=== PATIENT | male | born 1950 | race Caucasian/White ===

== ENCOUNTER → 2021-06-30 | Outpatient (REF) | payer MEDICARE, BC, OTHER ==
[2021-06-30 18:18] LABS: CREATININE FOR GFR 1.44 MG/DL (0.70-1.30); GLOMERULAR FILTRATION RATE 51.3 (>42)
== END ==
LOC: M LAB REF 17:24 → M PLALAB 17:24
PROVIDERS: ATTEND Surgery Vascular Surgery
DX: I71.4 Abdominal aortic aneurysm, without rupture (principal); Z48.812 Encounter for surgical aftercare following surgery on the circulatory system

== ENCOUNTER → 2021-07-07 | Outpatient (CLI) | payer MEDICARE, BC, OTHER ==
[~2021-07-07] MED LIST: ISOVUE-370 76% 100ML VIAL As Ordered ONE
== END ==
LOC: M RAD 13:55
PROVIDERS: ATTEND Surgery Vascular Surgery
DX: I71.4 Abdominal aortic aneurysm, without rupture (principal)
CPT/HCPCS: 75635; Q9967

== ENCOUNTER → 2021-08-26 | Outpatient (CLI) | payer MEDICARE, BC, OTHER ==
[2021-08-26 12:45] LABS: BASO # 0.1 10^3/uL (0.0-0.2); BASO % 1.3 % (0.0-1.0); EOS # 0.4 10^3/uL (0.0-0.5); EOS % 5.5 % (0.0-3.0); HEMATOCRIT 43.7 % (42.0-52.0); HEMOGLOBIN 14.8 g/dl (13.5-17.5); LYMPH # 2.2 10^3/uL (1.5-5.0); LYMPH % 30.9 % (24.0-44.0); MEAN CORPUSCULAR HEMOGLOBIN 34.8 pg (27.0-33.0); MEAN CORPUSCULAR HGB CONC 33.9 g/dl (32.0-36.5); MEAN CORPUSCULAR VOLUME 102.8 fl (80.0-96.0); MONO # 0.5 10^3/uL (0.0-0.8); MONO % 6.8 % (2.0-8.0); NEUTROPHILS # 3.9 10^3/uL (1.5-8.5); NEUTROPHILS % 54.9 % (36.0-66.0); PLATELET COUNT, AUTOMATED 169 10^3/uL (150-450); RED BLOOD COUNT 4.25 10^6/uL (4.30-6.10); WHITE BLOOD COUNT 7.1 10^3/uL (4.0-10.0)
[2021-08-26 12:58] LABS: INR 1.17; PROTHROMBIN TIME 15.3 SECONDS (12.7-14.5)
[2021-08-26 12:59] LABS: PARTIAL THROMBOPLASTIN TIME 37.3 SECONDS (25.9-37.0)
[2021-08-26 14:54] LABS: CALCIUM LEVEL 9.4 MG/DL (8.8-10.2); CREATININE FOR GFR 1.39 MG/DL (0.70-1.30); GLOMERULAR FILTRATION RATE 53.5 (>42); POTASSIUM SERUM 4.7 MEQ/L (3.5-5.1)
== END ==
LOC: M WUC 09:50
PROVIDERS: ATTEND Surgery Vascular Surgery
DX: Z01.812 Encounter for preprocedural laboratory examination (principal); D69.8 Other specified hemorrhagic conditions; I70.212 Atherosclerosis of native arteries of extremities with intermittent claudication, left leg

== ENCOUNTER → 2021-08-27 | Outpatient (CLI) | payer MEDICARE, BC, OTHER | LOC: M LABSMTC 09:38 | PROVIDERS: ATTEND Surgery Vascular Surgery | DX: Z11.52 Encounter for screening for COVID-19 (principal) ==

== ENCOUNTER → 2021-10-17 | Outpatient (CLI) | payer MEDICARE, BC, OTHER | LOC: M RAD 12:56 | PROVIDERS: ATTEND Surgery Vascular Surgery | DX: R06.02 Shortness of breath (principal) ==

== ENCOUNTER → 2021-11-17 | Outpatient (CLI) | payer MEDICARE, BC, OTHER ==
--- NOTE | 2021-11-17 08:52 | REP ---
INDICATION: SMOKER COMPARISON: None. TECHNIQUE: Axial noncontrast images from the thoracic inlet to the upper abdomen using low-dose lung screening technique (LDCT). FINDINGS: Chronic emphysematous and subtle scattered interstitial changes are appreciated bilaterally along with small noncalcified densities measuring up to roughly 3 mm. Tracheobronchial tree is patent. Limited evaluation of the mediastinum demonstrates significant atherosclerotic changes to the thoracic aorta and coronary arteries with suggestions for ascending aortic aneurysm. Cardiomegaly is noted with evidence for prior aortic valve repair. There is a 1.5 cm subpleural part solid nodule along the posterior aspect of the apical left lower lobe (image 44). No further similar nodules or mass lesions are identified. IMPRESSION: Lung-RADS category 4-A. Three month low-dose CT follow-up examination and/or PET-CT should be considered for further investigation. <Electronically signed by Sher Arguello > 11/17/21 0888
== END ==
LOC: M RAD 07:25
PROVIDERS: ATTEND Family Medicine
DX: Z87.891 Personal history of nicotine dependence (principal)

== ENCOUNTER → 2022-02-16 | Outpatient (CLI) | payer MEDICARE, BC, OTHER | LOC: M RAD 07:40 | PROVIDERS: ATTEND Family Medicine | DX: Z12.2 Encounter for screening for malignant neoplasm of respiratory organs (principal); Z72.0 Tobacco use ==

== ENCOUNTER 2022-10-06 11:09 | Inpatient (IN) | payer MEDICARE, BC, OTHER ==
[~2022-10-06] VITALS: Ht 165.1 cm; Wt 110.3 kg
[2022-10-06] MEDS ORDERED: FENO135C6 PO (11:28)
[2022-10-06] MEDS ORDERED: METF500T13 PO (11:28)
[2022-10-06] MEDS ORDERED: PARO20TA3 PO (11:28)
[2022-10-06] MEDS ORDERED: FURO20TA2 PO (11:28)
[2022-10-06] MEDS ORDERED: METO1TAB7 PO (11:28)
[2022-10-06] MEDS ORDERED: ELIQ5TAB PO (11:28)
[2022-10-06] MEDS ORDERED: RAMI1CAP24 PO (11:28)
[2022-10-06] MEDS ORDERED: ALLO300T2 PO (11:28)
[2022-10-06] MEDS ORDERED: NITROGLYCERIN 0.4 MG SUBL TABLET As Ordered ONE (11:35)
[2022-10-06] MEDS ORDERED: LORazepam 2 MG/ML VIAL IV STA ×3 (11:39→11:43)
[2022-10-06] MEDS ORDERED: NITROGLYCERIN/D5W 100MCG/ML 25 MG in IV 1 EA IV SCH ×3 (11:40→16:05)
[2022-10-06] MEDS ORDERED: NITROGLYCERIN IN D5W 25MG/250ML (100MCG/ML) As Ordered ONE (11:40)
[2022-10-06] MEDS ORDERED: LORazepam 2 MG/ML VIAL As Ordered ONE (11:41)
[2022-10-06] MEDS ORDERED: NITROGLYCERIN 0.4 MG SUBL TABLET SL STA (11:42)
[2022-10-06 11:45] LABS: ABG BASE EXCESS -4.7 (-2.0-2.0); ABG HCO3 21.7 MEQ/L (22.0-26.0); ABG O2 SATURATION 87.5 % (95.0-99.0); ABG PARTIAL PRESSURE CO2 44.4 mmHg (35.0-45.0); ABG PARTIAL PRESSURE O2 56.5 mmHg (75.0-100.0); ABG STANDARD HCO3 20.4 MEQ/L (22.0-26.0); ABG pH (ARTERIAL) 7.306 UNITS (7.350-7.450)
[2022-10-06] MEDS ORDERED: ASPIRIN 81 MG CHEW TABLET PO ONE (11:45)
[2022-10-06 11:49] LABS: BASO # 0.1 10^3/uL (0.0-0.2); BASO % 1.1 % (0.0-1.0); EOS # 0.3 10^3/uL (0.0-0.5); EOS % 2.1 % (0.0-3.0); HEMATOCRIT 46.3 % (42.0-52.0); HEMOGLOBIN 15.4 g/dl (13.5-17.5); LYMPH # 3.1 10^3/uL (1.5-5.0); LYMPH % 23.3 % (24.0-44.0); MEAN CORPUSCULAR HEMOGLOBIN 35.2 pg (27.0-33.0); MEAN CORPUSCULAR HGB CONC 33.3 g/dl (32.0-36.5); MEAN CORPUSCULAR VOLUME 105.7 fl (80.0-96.0); MONO # 0.9 10^3/uL (0.0-0.8); MONO % 7.1 % (2.0-8.0); NEUTROPHILS # 8.7 10^3/uL (1.5-8.5); PLATELET COUNT, AUTOMATED 126 10^3/uL (150-450); RED BLOOD COUNT 4.38 10^6/uL (4.30-6.10); WHITE BLOOD COUNT 13.2 10^3/uL (4.0-10.0)
[2022-10-06 11:50] LABS: VENOUS BASE EXCESS -5.8 (-2.0-2.0); VENOUS HCO3 22.3 MEQ/L (23.0-27.0); VENOUS O2 SATURATION 68.3 % (60.0-80.0); VENOUS PARTIAL PRESSURE CO2 53.7 mmHg (38.0-50.0); VENOUS PARTIAL PRESSURE O2 39.7 mmHg (30.0-50.0); VENOUS PH 7.237 UNITS (7.330-7.430); VENOUS STANDARD HCO3 19.1 MEQ/L
[2022-10-06] MEDS ORDERED: FUROSEMIDE 100MG/10ML VIAL (J1940) IV ONE (11:50)
[2022-10-06] MEDS ORDERED: DIGOXIN INJ 0.5 MG/2 ML AMP IV ONE (11:55)
[2022-10-06] MEDS ORDERED: CEFEPIME HCL 2 GM in D5W MINI-BAG PLUS 50 ML IV ONE (12:15)
[2022-10-06] MEDS ORDERED: AZITHROMYCIN INJ 500 MG, VIAL MATE ADAPTER 1 EACH in D5W 250 ML IV ONE (12:15)
[2022-10-06] MEDS ORDERED: LIDOCAINE 2% 5ML JELLY UROJET TOP ONE (12:15)
[2022-10-06 12:30] LABS: RSV AMPLIFICATION NEGATIVE (NEGATIVE)
[2022-10-06 13:06] LABS: ALBUMIN 4.4 G/DL (3.2-5.2); BILIRUBIN,DIRECT 0.3 MG/DL (<0.4); BILIRUBIN,TOTAL 0.8 MG/DL (0.3-1.2); CK-MB VALUE MASS 2.3 NG/ML (<3.6); CREATININE FOR GFR 4.73 MG/DL (0.70-1.30); MAGNESIUM LEVEL 1.9 MG/DL (1.8-2.4); MB/CK RELATIVE INDEX 2.67 (< OR =4); POTASSIUM SERUM 4.8 MMOL/L (3.5-5.1); THYROID STIMULATING HORMONE 3.767 uIU/ML (0.55-4.78); THYROXINE (T4) 5.2 UG/DL (4.5-10.9); TOTAL PROTEIN 8.2 G/DL (5.7-8.2)
[2022-10-06 14:37] LABS: CK-MB VALUE MASS 2.5 NG/ML (<3.6); MB/CK RELATIVE INDEX 3.62 (< OR =4)
[2022-10-06] MEDS ORDERED: GLUCOSE 4GM CHEW TABLET PO PRN (15:50)
[2022-10-06] MEDS ORDERED: GLUCAGON INJ 1MG VIAL SC PRN (15:50)
[2022-10-06] MEDS ORDERED: DEXTROSE 50% 50 ML SYRINGE IV PRN (15:50)
[2022-10-06] MEDS ORDERED: ACET1TAB55 PO (16:29)
[2022-10-06] MEDS ORDERED: ASPI81TA26 PO (16:29)
[2022-10-06] MEDS ORDERED: HOME MED LIST COMPLETE! XX SCH (16:30)
[2022-10-06] MEDS ORDERED: LORazepam 2 MG TAB PO PRN (17:10)
[2022-10-06 17:30] VITALS: BP 157/85
[2022-10-06] MEDS: INSULIN LISPRO (NovoLOG) PER UNIT SC SCH ×2 (17:30→20:57)
[2022-10-06 17:45] VITALS: BP 122/74
[2022-10-06] MEDS: methylPREDNISolone 40MG 1ML VIAL IV SCH (17:54)
[2022-10-06] MEDS: FUROSEMIDE 40MG/4ML VIAL (J1940) IV SCH (17:55)
[2022-10-06] MEDS: PANTOPRAZOLE 40MG TAB (PROTONIX) PO SCH (17:55)
[2022-10-06 18:00] VITALS: BP 112/67
[2022-10-06 18:15] VITALS: BP 131/85
[2022-10-06 18:45] VITALS: BP 142/84
[2022-10-06 19:58] LABS: CK-MB VALUE MASS 2.6 NG/ML (<3.6); MB/CK RELATIVE INDEX 3.88 (< OR =4)
[2022-10-06 20:00] VITALS: BP 144/72
[2022-10-06] MEDS: APIXABAN 2.5 MG TAB (ELIQUIS) PO SCH (20:56)
[2022-10-06] MEDS: OXAZEPAM 15MG CAP PO SCH (20:56)
[2022-10-06] MEDS: THIAMINE 100 MG TAB PO SCH (20:57)
[2022-10-06] MEDS ORDERED: APIXABAN 5 MG TAB (ELIQUIS) PO SCH (21:00)
[2022-10-07] VITALS: BP_SYST 139; BP_SYST 144; BP_DIAS 67; BP_DIAS 72
[2022-10-07] MEDS: methylPREDNISolone 40MG 1ML VIAL IV SCH ×3 (01:48→20:40)
[2022-10-07 04:00] VITALS: BP 108/63
[2022-10-07 04:47] LABS: HEMATOCRIT 35.6 % (42.0-52.0); MEAN CORPUSCULAR HEMOGLOBIN 35.6 pg (27.0-33.0); MEAN CORPUSCULAR HGB CONC 34.3 g/dl (32.0-36.5); MEAN CORPUSCULAR VOLUME 103.8 fl (80.0-96.0); PLATELET COUNT, AUTOMATED 100 10^3/uL (150-450); RED BLOOD COUNT 3.43 10^6/uL (4.30-6.10)
[2022-10-07 05:09] LABS: HEMOGLOBIN 12.2 g/dl (13.5-17.5)
[2022-10-07] MEDS: cefTRIAXone SOD 1 GM in D5W MINI-BAG PLUS 50 ML IV SCH (05:09)
[2022-10-07 05:21] LABS: ALBUMIN 3.7 G/DL (3.2-5.2); BILIRUBIN,TOTAL 0.8 MG/DL (0.3-1.2); CALCIUM LEVEL 8.9 MG/DL (8.3-10.6); CREATININE FOR GFR 5.26 MG/DL (0.70-1.30); GLOMERULAR FILTRATION RATE 11.5 (>42); MAGNESIUM LEVEL 1.8 MG/DL (1.8-2.4); POTASSIUM SERUM 5.1 MMOL/L (3.5-5.1)
[2022-10-07 05:33] LABS: ABG BASE EXCESS -1.7 (-2.0-2.0); ABG HCO3 22.6 MEQ/L (22.0-26.0); ABG O2 SATURATION 95.2 % (95.0-99.0); ABG PARTIAL PRESSURE CO2 36.7 mmHg (35.0-45.0); ABG PARTIAL PRESSURE O2 77.1 mmHg (75.0-100.0); ABG TOTAL CO2 23.7 MEQ/L (23.0-31.0); ABG pH (ARTERIAL) 7.407 UNITS (7.350-7.450)
[2022-10-07 08:00] VITALS: BP 143/84
[2022-10-07] MEDS: INSULIN LISPRO (NovoLOG) PER UNIT SC SCH ×4 (08:29→20:41)
[2022-10-07] MEDS: FUROSEMIDE 40MG/4ML VIAL (J1940) IV SCH (08:30)
[2022-10-07] MEDS: METOPROLOL TART 25 MG TABLET PO SCH ×2 (08:33→20:40)
[2022-10-07] MEDS: THIAMINE 100 MG TAB PO SCH ×2 (08:33→20:41)
[2022-10-07] MEDS: FOLIC ACID 1MG TAB PO SCH (08:33)
[2022-10-07] MEDS: APIXABAN 2.5 MG TAB (ELIQUIS) PO SCH ×2 (08:33→20:41)
[2022-10-07] MEDS: OXAZEPAM 15MG CAP PO SCH ×2 (08:33→20:41)
[2022-10-07] MEDS: PANTOPRAZOLE 40MG TAB (PROTONIX) PO SCH (08:33)
[2022-10-07] MEDS: MULTIVITAMINS/MINERALS THERAP 1 TAB PO SCH (08:33)
[2022-10-07 11:50] LABS: APPEARANCE, URINE MANUAL HAZY (CLEAR); BILIRUBIN, URINE MANUAL NEGATIVE (NEGATIVE); BLOOD URINE MANUAL POSITIVE (NEGATIVE); COLOR, URINE MANUAL YELLOW (YELLOW); GLUCOSE, URINE (UA) MANUAL NEGATIVE (NEGATIVE); KETONE, URINE MANUAL NEGATIVE (NEGATIVE); LEUKOCYTE ESTERASE, URINE MAN NEGATIVE (NEGATIVE); NITRITE, URINE MANUAL NEGATIVE (NEGATIVE); PROTEIN, URINE MANUAL NEGATIVE (NEGATIVE); SPECIFIC GRAVITY,URINE MANUAL 1.015 (1.002-1.035); UROBILINOGEN, URINE MANUAL NORMAL (NORMAL)
[2022-10-07 12:00] VITALS: BP 124/72
[2022-10-07 12:06] LABS: RBC, URINE 40-50 /hpf (0-3); SQUAMOUS EPITHELIAL CELL URINE NONE SEEN /hpf (SMALL AMT); WBC, URINE 0-1 /hpf (0-3)
[2022-10-07 12:07] LABS: BACTERIA, URINE SMALL AMOUNT; HYALINE CAST, URINE NONE SEEN /lpf (0-1)
[2022-10-07] MEDS: AZITHROMYCIN INJ 500 MG, VIAL MATE ADAPTER 1 EACH in NS 250 ML IV SCH (12:20)
[2022-10-07 16:00] VITALS: BP 127/76
[2022-10-07 20:28] VITALS: BP 124/75
[2022-10-08] VITALS (8 sets, daily range): BP systolic 128–156; BP diastolic 75–89
[2022-10-08 04:59] LABS: HEMATOCRIT 34.8 % (42.0-52.0); MEAN CORPUSCULAR HEMOGLOBIN 35.6 pg (27.0-33.0); MEAN CORPUSCULAR HGB CONC 34.5 g/dl (32.0-36.5); MEAN CORPUSCULAR VOLUME 103.3 fl (80.0-96.0); PLATELET COUNT, AUTOMATED 114 10^3/uL (150-450); RED BLOOD COUNT 3.37 10^6/uL (4.30-6.10); WHITE BLOOD COUNT 10.4 10^3/uL (4.0-10.0)
[2022-10-08 05:30] LABS: ALBUMIN 3.6 G/DL (3.2-5.2); BILIRUBIN,TOTAL 0.4 MG/DL (0.3-1.2); CALCIUM LEVEL 8.8 MG/DL (8.3-10.6); CREATININE FOR GFR 5.17 MG/DL (0.70-1.30); GLOMERULAR FILTRATION RATE 11.7 (>42); POTASSIUM SERUM 4.6 MMOL/L (3.5-5.1); TOTAL PROTEIN 7.1 G/DL (5.7-8.2)
[2022-10-08] MEDS: cefTRIAXone SOD 1 GM in D5W MINI-BAG PLUS 50 ML IV SCH (05:34)
[2022-10-08] MEDS: methylPREDNISolone 40MG 1ML VIAL IV SCH ×2 (08:44→20:23)
[2022-10-08] MEDS: INSULIN LISPRO (NovoLOG) PER UNIT SC SCH ×4 (08:44→20:15)
[2022-10-08] MEDS: PANTOPRAZOLE 40MG TAB (PROTONIX) PO SCH (08:45)
[2022-10-08] MEDS: METOPROLOL TART 25 MG TABLET PO SCH ×2 (08:45→20:24)
[2022-10-08] MEDS: MULTIVITAMINS/MINERALS THERAP 1 TAB PO SCH (08:45)
[2022-10-08] MEDS: FOLIC ACID 1MG TAB PO SCH (08:45)
[2022-10-08] MEDS: APIXABAN 2.5 MG TAB (ELIQUIS) PO SCH ×2 (08:45→20:24)
[2022-10-08] MEDS: THIAMINE 100 MG TAB PO SCH ×2 (08:46→20:24)
[2022-10-08] MEDS: OXAZEPAM 15MG CAP PO SCH ×2 (08:46→20:24)
[2022-10-08] MEDS: AZITHROMYCIN INJ 500 MG, VIAL MATE ADAPTER 1 EACH in NS 250 ML IV SCH (12:15)
[2022-10-08 22:26] LABS: CALCIUM LEVEL 8.5 MG/DL (8.3-10.6); CREATININE FOR GFR 4.78 MG/DL (0.70-1.30); GLOMERULAR FILTRATION RATE 12.8 (>42); POTASSIUM SERUM 4.4 MMOL/L (3.5-5.1)
[2022-10-09] VITALS (7 sets, daily range): BP systolic 125–152; BP diastolic 70–91
[2022-10-09 05:11] LABS: HEMATOCRIT 35.7 % (42.0-52.0); MEAN CORPUSCULAR HGB CONC 33.6 g/dl (32.0-36.5); MEAN CORPUSCULAR VOLUME 104.1 fl (80.0-96.0); PLATELET COUNT, AUTOMATED 138 10^3/uL (150-450); RED BLOOD COUNT 3.43 10^6/uL (4.30-6.10); WHITE BLOOD COUNT 9.8 10^3/uL (4.0-10.0)
[2022-10-09] MEDS: cefTRIAXone SOD 1 GM in D5W MINI-BAG PLUS 50 ML IV SCH (05:22)
[2022-10-09 05:58] LABS: ALBUMIN 3.4 G/DL (3.2-5.2); BILIRUBIN,TOTAL 0.4 MG/DL (0.3-1.2); CALCIUM LEVEL 8.8 MG/DL (8.3-10.6); CREATININE FOR GFR 4.69 MG/DL (0.70-1.30); GLOMERULAR FILTRATION RATE 13.1 (>42); MAGNESIUM LEVEL 1.9 MG/DL (1.8-2.4); POTASSIUM SERUM 4.8 MMOL/L (3.5-5.1); TOTAL PROTEIN 6.7 G/DL (5.7-8.2)
[2022-10-09] MEDS: OXAZEPAM 15MG CAP PO SCH ×2 (09:04→20:06)
[2022-10-09] MEDS: MULTIVITAMINS/MINERALS THERAP 1 TAB PO SCH (09:04)
[2022-10-09] MEDS: methylPREDNISolone 40MG 1ML VIAL IV SCH ×2 (09:04→20:06)
[2022-10-09] MEDS: PANTOPRAZOLE 40MG TAB (PROTONIX) PO SCH (09:04)
[2022-10-09] MEDS: APIXABAN 2.5 MG TAB (ELIQUIS) PO SCH ×2 (09:04→20:06)
[2022-10-09] MEDS: INSULIN LISPRO (NovoLOG) PER UNIT SC SCH ×4 (09:04→20:06)
[2022-10-09] MEDS: THIAMINE 100 MG TAB PO SCH (09:04)
[2022-10-09] MEDS: FOLIC ACID 1MG TAB PO SCH (09:04)
[2022-10-09] MEDS: METOPROLOL TART 25 MG TABLET PO SCH ×2 (09:05→20:06)
[2022-10-09] MEDS ORDERED: FUROSEMIDE 100MG/10ML VIAL (J1940) IV ONE (10:00)
[2022-10-09] MEDS: AZITHROMYCIN INJ 500 MG, VIAL MATE ADAPTER 1 EACH in NS 250 ML IV SCH (13:15)
[2022-10-10] VITALS: BP 158/80
[2022-10-10 03:33] LABS: HEMATOCRIT 37.9 % (42.0-52.0); HEMOGLOBIN 12.7 g/dl (13.5-17.5); MEAN CORPUSCULAR HEMOGLOBIN 35.1 pg (27.0-33.0); MEAN CORPUSCULAR HGB CONC 33.5 g/dl (32.0-36.5); MEAN CORPUSCULAR VOLUME 104.7 fl (80.0-96.0); PLATELET COUNT, AUTOMATED 152 10^3/uL (150-450); RED BLOOD COUNT 3.62 10^6/uL (4.30-6.10); WHITE BLOOD COUNT 10.1 10^3/uL (4.0-10.0)
[2022-10-10 04:00] VITALS: BP 135/69
[2022-10-10 04:26] LABS: ALBUMIN 3.8 G/DL (3.2-5.2); BILIRUBIN,TOTAL 0.3 MG/DL (0.3-1.2); CALCIUM LEVEL 8.7 MG/DL (8.3-10.6); CREATININE FOR GFR 4.45 MG/DL (0.70-1.30); GLOMERULAR FILTRATION RATE 13.9 (>42); POTASSIUM SERUM 4.8 MMOL/L (3.5-5.1); TOTAL PROTEIN 7.1 G/DL (5.7-8.2)
[2022-10-10] MEDS: cefTRIAXone SOD 1 GM in D5W MINI-BAG PLUS 50 ML IV SCH (05:58)
[2022-10-10 08:00] VITALS: BP 175/91
[2022-10-10] MEDS ORDERED: GLIMEPIRIDE 1 MG TABLET PO SCH (08:00)
[2022-10-10] MEDS: OXAZEPAM 15MG CAP PO SCH (09:29)
[2022-10-10] MEDS: MULTIVITAMINS/MINERALS THERAP 1 TAB PO SCH (09:29)
[2022-10-10] MEDS: INSULIN LISPRO (NovoLOG) PER UNIT SC SCH ×2 (09:29→11:50)
[2022-10-10] MEDS: APIXABAN 2.5 MG TAB (ELIQUIS) PO SCH (09:29)
[2022-10-10] MEDS: PANTOPRAZOLE 40MG TAB (PROTONIX) PO SCH (09:29)
[2022-10-10] MEDS: FOLIC ACID 1MG TAB PO SCH (09:29)
[2022-10-10 09:30] VITALS: BP 175/91
[2022-10-10] MEDS: METOPROLOL TART 25 MG TABLET PO SCH (09:30)
[2022-10-10] MEDS: methylPREDNISolone 40MG 1ML VIAL IV SCH (09:31)
[2022-10-10] MEDS ORDERED: OXAZ15CA4 PO (10:06)
[2022-10-10] MEDS ORDERED: CEFD300C41 PO (10:06)
[2022-10-10] MEDS ORDERED: PANT40TA29 PO (10:06)
[2022-10-10] MEDS ORDERED: GLIM1TAB4 PO (10:06)
[2022-10-10] MEDS ORDERED: ELIQ2.5T PO (10:06)
[2022-10-10] MEDS ORDERED: AZIT-12 PO (10:06)
[2022-10-10] MEDS ORDERED: VITMTA PO (10:06)
[2022-10-10 12:00] VITALS: BP 152/86
[2022-10-10] MEDS ORDERED: AZITHROMYCIN 250MG TABLET PO SCH (13:00)
[2022-10-10] MEDS ORDERED: [UNRECOGNIZED DRUG - CODE] XX (13:09)
[2022-10-10] MEDS ORDERED: NORV5TAB PO (13:09)
[2022-10-10] MEDS ORDERED: amLODIPine 5 MG TAB PO ONE (13:10)
[2022-10-10 13:28] VITALS: BP 139/82
[2022-10-10 13:55] LABS: HEMOGLOBIN A1c 5.7 % (4.0-6.0)
== END 2022-10-10 13:35 | disposition home health service (06) | DRG 193 ==
LOC: M ED 11:09 → M ED INP 15:39 → ENRESERV 16:19 → M ICU 17:12
PROVIDERS: ADMIT Internal Medicine; ATTEND General Practice
DX: J18.9 Pneumonia, unspecified organism (principal); J96.01 Acute respiratory failure with hypoxia; J96.02 Acute respiratory failure with hypercapnia; N17.9 Acute kidney failure, unspecified; I13.0 Hypertensive heart and chronic kidney disease with heart failure and stage 1 through stage 4 chronic kidney disease, or unspecified chronic kidney disease; J44.0 Chronic obstructive pulmonary disease with (acute) lower respiratory infection; J44.1 Chronic obstructive pulmonary disease with (acute) exacerbation; E87.20 Acidosis, unspecified; I50.9 Heart failure, unspecified; I16.0 Hypertensive urgency; I25.10 Atherosclerotic heart disease of native coronary artery without angina pectoris; E11.22 Type 2 diabetes mellitus with diabetic chronic kidney disease; I25.2 Old myocardial infarction; N18.9 Chronic kidney disease, unspecified; I48.91 Unspecified atrial fibrillation; G47.33 Obstructive sleep apnea (adult) (pediatric); F17.200 Nicotine dependence, unspecified, uncomplicated; F10.10 Alcohol abuse, uncomplicated; Z95.2 Presence of prosthetic heart valve; Z95.1 Presence of aortocoronary bypass graft; Z79.01 Long term (current) use of anticoagulants; Z79.899 Other long term (current) drug therapy; Z79.82 Long term (current) use of aspirin; Z79.84 Long term (current) use of oral hypoglycemic drugs

== ENCOUNTER 2023-03-25 08:53 | Inpatient (IN) | payer MEDICARE, BC, OTHER ==
[~2023-03-25] VITALS: Ht 162.6 cm; Wt 107.9 kg
[~2023-03-25 08:53] MED LIST changes: +ACET1TAB55 PO; +ALLO300T2 PO; +ASPI81TA26 PO; +AZIT-12 PO; +CEFD300C41 PO; +ELIQ2.5T PO; +ELIQ5TAB PO; +FENO135C6 PO; +FURO20TA2 PO; +GLIM1TAB4 PO; -ISOVUE-370 76% 100ML VIAL As Ordered ONE; +METF500T13 PO; +METO1TAB7 PO; +NORV5TAB PO; +OXAZ15CA4 PO; +PANT40TA29 PO; +PARO20TA3 PO; +RAMI1CAP24 PO; +VITMTA PO; +[UNRECOGNIZED DRUG - CODE] XX
[2023-03-25] MEDS ORDERED: CLOP75TA2 PO (09:17)
[2023-03-25] MEDS ORDERED: FURO40TA2 PO (09:17)
[2023-03-25] MEDS ORDERED: IPRATROPIUM 0.5MG/ALBUTEROL 2.5MG INH SOL UD 3ML (DUONEB) NEB ONE (10:10)
[2023-03-25 10:13] LABS: RSV AMPLIFICATION NEGATIVE (NEGATIVE)
[2023-03-25 10:20] VITALS: O2SAT 96
[2023-03-25 10:42] LABS: ABG BASE EXCESS -2.4 (-2.0-2.0); ABG HCO3 21.4 MMOL/L (22.0-26.0); ABG O2 SATURATION 92.6 % (95.0-99.0); ABG PARTIAL PRESSURE CO2 33.6 mmHg (35.0-45.0); ABG PARTIAL PRESSURE O2 66.2 mmHg (75.0-100.0); ABG STANDARD HCO3 22.4 MMOL/L. (22.0-26.0); ABG TOTAL CO2 22.4 MMOL/L (23.0-31.0); ABG pH (ARTERIAL) 7.421 UNITS (7.350-7.450)
[2023-03-25 11:01] LABS: BASO % 0.9 % (0.0-1.0); EOS # 0.2 10^3/uL (0.0-0.5); EOS % 4.3 % (0.0-3.0); HEMATOCRIT 38.1 % (42.0-52.0); HEMOGLOBIN 12.3 g/dl (13.5-17.5); LYMPH # 1.1 10^3/uL (1.5-5.0); LYMPH % 24.5 % (24.0-44.0); MEAN CORPUSCULAR HEMOGLOBIN 30.6 pg (27.0-33.0); MEAN CORPUSCULAR HGB CONC 32.3 g/dl (32.0-36.5); MEAN CORPUSCULAR VOLUME 94.8 fl (80.0-96.0); MONO # 0.6 10^3/uL (0.0-0.8); MONO % 12.6 % (2.0-8.0); NEUTROPHILS # 2.5 10^3/uL (1.5-8.5); PLATELET COUNT, AUTOMATED 138 10^3/uL (150-450); RED BLOOD COUNT 4.02 10^6/uL (4.30-6.10); WHITE BLOOD COUNT 4.4 10^3/uL (4.0-10.0)
[2023-03-25 11:15] LABS: INR 1.17; PROTHROMBIN TIME 15.1 SECONDS (12.5-14.5)
[2023-03-25 11:21] LABS: CK-MB VALUE MASS < 1.0 NG/ML (<3.6)
[2023-03-25 11:22] LABS: ALBUMIN 3.6 G/DL (3.2-5.2); ALKALINE PHOSPHATASE 42 U/L (46-116); ALT/SGPT 15 U/L (7.0-40); AST/SGOT < 8 U/L (<34); BILIRUBIN,DIRECT 0.2 MG/DL (<0.4); BILIRUBIN,TOTAL 0.4 MG/DL (0.3-1.2); BLOOD UREA NITROGEN 23 MG/DL (9-23); CALCIUM LEVEL 8.4 MG/DL (8.3-10.6); CARBON DIOXIDE LEVEL 26 MMOL/L (20-31); CHLORIDE LEVEL 107 MMOL/L (98-107); CPK CREATINE PHOSPHOKINASE 87 U/L (46-171); CREATININE FOR GFR 1.69 MG/DL (0.70-1.30); GLOMERULAR FILTRATION RATE 42.4 (>42); GLUCOSE, FASTING 86 MG/DL (74-106); MB/CK RELATIVE INDEX 1.14 (< OR =4); POTASSIUM SERUM 4.2 MMOL/L (3.5-5.1); SODIUM LEVEL 140 MMOL/L (136-145); TOTAL PROTEIN 7.1 G/DL (5.7-8.2)
[2023-03-25 11:25] LABS: THYROID STIMULATING HORMONE 1.502 uIU/ML (0.55-4.78)
[2023-03-25] MEDS ORDERED: ISOVUE-370 76% 100ML VIAL As Ordered ONE (12:29)
[2023-03-25 12:38] LABS: CK-MB VALUE MASS 1.2 NG/ML (<3.6)
[2023-03-25 12:40] LABS: MB/CK RELATIVE INDEX 1.36 (< OR =4)
[2023-03-25] MEDS ORDERED: methylPREDNISolone 125MG 2ML VIAL IV ONE (14:20)
[2023-03-25] MEDS ORDERED: GLIM1TAB4 PO (14:53)
[2023-03-25] MEDS ORDERED: ELIQ2.5T PO (14:53)
[2023-03-25] MEDS ORDERED: HOME MED LIST COMPLETE! XX SCH (14:55)
[2023-03-25] MEDS ORDERED: ACETAMINOPHEN TAB 650MG DOSE (2X325MG) PO ONE (14:55)
[2023-03-25] MEDS ORDERED: guaiFENesin SYRUP 200MG 10ML UDC PO PRN (15:10)
[2023-03-25] MEDS ORDERED: ONDANSETRON 4MG 2ML VIAL IV PRN (15:10)
[2023-03-25] MEDS ORDERED: ACETAMINOPHEN TAB 650MG DOSE (2X325MG) PO PRN (15:10)
[2023-03-25] MEDS ORDERED: CHLORASEPTIC SPRAY MT PRN (15:10)
[2023-03-25] MEDS: CLOPIDOGREL 75 MG TAB PO SCH (16:27)
[2023-03-25] MEDS: PARoxetine 20MG TABLET PO SCH (16:27)
[2023-03-25] MEDS: METOPROLOL SUCC (TopROL XL) 50MG **XL** TAB PO SCH (16:27)
[2023-03-25 17:15] VITALS: BP 138/84
[2023-03-25] MEDS: GLIMEPIRIDE 1 MG TABLET PO SCH (17:58)
[2023-03-25] MEDS ORDERED: FUROSEMIDE 100MG/10ML VIAL IV ONE (18:25)
[2023-03-25] MEDS ORDERED: GLUCOSE 4GM CHEW TABLET PO PRN (18:25)
[2023-03-25] MEDS ORDERED: DEXTROSE 50% 50ML SYRINGE IV PRN (18:25)
[2023-03-25] MEDS ORDERED: GLUCAGON INJ 1MG VIAL SC PRN (18:25)
[2023-03-25] MEDS: ALBUTEROL SULFATE 2.5MG/0.5ML INH NEB SOLN NEB SCH (19:16)
[2023-03-25] MEDS: DOCUSATE SODIUM 100MG CAPSULE PO SCH (20:43)
[2023-03-25] MEDS: APIXABAN 2.5 MG TAB (ELIQUIS) PO SCH (20:43)
[2023-03-25] MEDS: DEXTROMETHORPHAN 60MG/10ML SUSP 90ML BTL(DELSYM) PO SCH (20:44)
[2023-03-25 20:54] VITALS: BP 131/62
[2023-03-25] MEDS ORDERED: INSULIN LISPRO (NovoLOG) PER UNIT SC SCH (21:00)
[2023-03-25] MEDS ORDERED: allopurinoL 300 MG TAB PO SCH (21:00)
[2023-03-26] MEDS: ALBUTEROL SULFATE 2.5MG/0.5ML INH NEB SOLN NEB SCH ×2 (01:38→06:12)
[2023-03-26 06:00] VITALS: BP 121/61
[2023-03-26 06:04] LABS: BASO % 0.4 % (0.0-1.0); EOS % 0.2 % (0.0-3.0); HEMOGLOBIN 13.1 g/dl (13.5-17.5); LYMPH # 1.3 10^3/uL (1.5-5.0); MEAN CORPUSCULAR HEMOGLOBIN 30.6 pg (27.0-33.0); MEAN CORPUSCULAR HGB CONC 32.8 g/dl (32.0-36.5); MEAN CORPUSCULAR VOLUME 93.5 fl (80.0-96.0); MONO # 0.4 10^3/uL (0.0-0.8); MONO % 8.7 % (2.0-8.0); NEUTROPHILS # 2.8 10^3/uL (1.5-8.5); NEUTROPHILS % 61.3 % (36.0-66.0); PLATELET COUNT, AUTOMATED 156 10^3/uL (150-450); RED BLOOD COUNT 4.28 10^6/uL (4.30-6.10); WHITE BLOOD COUNT 4.6 10^3/uL (4.0-10.0)
[2023-03-26 06:32] LABS: CALCIUM LEVEL 9.8 MG/DL (8.3-10.6); CREATININE FOR GFR 1.5 MG/DL (0.70-1.30); GLOMERULAR FILTRATION RATE 48.7 (>42); POTASSIUM SERUM 4.1 MMOL/L (3.5-5.1)
[2023-03-26] MEDS ORDERED: INSULIN LISPRO (NovoLOG) PER UNIT SC SCH (07:30)
[2023-03-26] MEDS ORDERED: ALBUTEROL 90 MCG/ACT 8GM HFA INHALER INH SCH (08:00)
[2023-03-26] MEDS: GLIMEPIRIDE 1 MG TABLET PO SCH (08:12)
[2023-03-26 08:13] VITALS: BP 121/61
[2023-03-26] MEDS: DEXTROMETHORPHAN 60MG/10ML SUSP 90ML BTL(DELSYM) PO SCH (08:13)
[2023-03-26] MEDS: APIXABAN 2.5 MG TAB (ELIQUIS) PO SCH (08:13)
[2023-03-26] MEDS: DOCUSATE SODIUM 100MG CAPSULE PO SCH (08:13)
[2023-03-26] MEDS: METOPROLOL SUCC (TopROL XL) 50MG **XL** TAB PO SCH (08:13)
[2023-03-26] MEDS: PARoxetine 20MG TABLET PO SCH (08:13)
[2023-03-26] MEDS: CLOPIDOGREL 75 MG TAB PO SCH (08:14)
[2023-03-26] MEDS ORDERED: FURO40TA2 PO (08:14)
[2023-03-26] MEDS ORDERED: PRED20TA PO (08:14)
[2023-03-26] MEDS ORDERED: VENTAER INH (08:14)
[2023-03-26] MEDS ORDERED: GUAISYP5 PO (08:17)
[2023-03-26] MEDS ORDERED: FUROSEMIDE 100MG/10ML VIAL IV ONE (08:30)
[2023-03-26] MEDS ORDERED: predniSONE 20 MG TAB PO SCH (09:00)
== END 2023-03-26 11:12 | disposition home or self-care (01) | DRG 153 ==
LOC: M ED 08:53 → M ED INP 15:08 → M MSPAV 17:15
PROVIDERS: ADMIT Internal Medicine Nephrology; ATTEND Internal Medicine Nephrology
DX: J11.1 Influenza due to unidentified influenza virus with other respiratory manifestations (principal); I50.22 Chronic systolic (congestive) heart failure; Z68.41 Body mass index [BMI] 40.0-44.9, adult; J98.11 Atelectasis; I25.2 Old myocardial infarction; I25.10 Atherosclerotic heart disease of native coronary artery without angina pectoris; I25.5 Ischemic cardiomyopathy; I34.0 Nonrheumatic mitral (valve) insufficiency; I48.91 Unspecified atrial fibrillation; I27.20 Pulmonary hypertension, unspecified; K80.20 Calculus of gallbladder without cholecystitis without obstruction; E11.22 Type 2 diabetes mellitus with diabetic chronic kidney disease; E66.01 Morbid (severe) obesity due to excess calories; G47.33 Obstructive sleep apnea (adult) (pediatric); Z95.2 Presence of prosthetic heart valve; N18.30 Chronic kidney disease, stage 3 unspecified; F10.10 Alcohol abuse, uncomplicated; Z95.1 Presence of aortocoronary bypass graft; Z87.891 Personal history of nicotine dependence; Z79.01 Long term (current) use of anticoagulants; Z79.84 Long term (current) use of oral hypoglycemic drugs; Z79.899 Other long term (current) drug therapy; Z88.0 Allergy status to penicillin; Z88.8 Allergy status to other drugs, medicaments and biological substances

== ENCOUNTER 2023-04-12 08:47 | Emergency (ER) | payer MEDICARE, BC, OTHER ==
[~2023-04-12] VITALS: Ht 160 cm; Wt 108.7 kg
[2023-04-12 08:47] VITALS: BP 141/78
[~2023-04-12 08:47] MED LIST changes: +CLOP75TA2 PO; +FURO40TA2 PO; +GUAISYP5 PO; +PRED20TA PO; +VENTAER INH
[2023-04-12] MEDS ORDERED: LIDOCAINE 2% MDV 20ML VIAL SC ONE (09:20)
[2023-04-12] MEDS ORDERED: BOOSTRIX VACCINE (TETANUS/DIPHTH/ACEL. PERTUSSIS) 0.5ML SYR IM ONE (09:35)
[2023-04-12] MEDS ORDERED: CEPH500C PO (11:27)
== END 2023-04-12 11:39 | disposition home or self-care (01) ==
LOC: M ED 08:47
DX: S61.217A Laceration without foreign body of left little finger without damage to nail, initial encounter (principal); S66.321A Laceration of extensor muscle, fascia and tendon of left index finger at wrist and hand level, initial encounter; W26.0XXA Contact with knife, initial encounter; Y92.009 Unspecified place in unspecified non-institutional (private) residence as the place of occurrence of the external cause; Y93.89 Activity, other specified; Y99.8 Other external cause status; I50.20 Unspecified systolic (congestive) heart failure; I25.2 Old myocardial infarction; I10 Essential (primary) hypertension; E11.9 Type 2 diabetes mellitus without complications; F41.9 Anxiety disorder, unspecified; Z79.01 Long term (current) use of anticoagulants; Z88.8 Allergy status to other drugs, medicaments and biological substances; Z88.0 Allergy status to penicillin; Z79.51 Long term (current) use of inhaled steroids; Z79.52 Long term (current) use of systemic steroids; Z79.899 Other long term (current) drug therapy

== ENCOUNTER → 2023-06-13 | Outpatient (CLI) | payer MEDICARE, BC, OTHER ==
[~2023-06-13] MED LIST changes: +CEPH500C PO
== END ==
LOC: M RAD 06:21
PROVIDERS: ATTEND Family Medicine
DX: Z87.891 Personal history of nicotine dependence (principal)